=== PATIENT | male | born 1990 | race Hispanic/Latino ===

== ENCOUNTER 2023-02-26 05:01 | Emergency (ER) | payer OTHER ==
[~2023-02-26] VITALS: Ht 182.9 cm; Wt 95.7 kg
[2023-02-26 05:05] VITALS: BP 141/83; PULSE 72; RESP 16; O2SAT 99
[2023-02-26] MEDS ORDERED: KETOROLAC 30MG VIAL (30MG/ML) IVP ONE (05:30)
[2023-02-26] MEDS ORDERED: CEFTRIAXONE 1G VIAL IVPB ONE (05:30)
[2023-02-26] MEDS ORDERED: CIPROFLOXACIN HCL 0.2%/HYDROCORT 1% 10 ML OTIC SUSP OTIC SCH (05:30)
[2023-02-26] MEDS ORDERED: CIPROFLOXACIN HCL 0.2%/HYDROCORT 1% 10 ML OTIC SUSP ONE (05:33)
[2023-02-26] MEDS ORDERED: CIPOTIC AD (06:05)
[2023-02-26] MEDS ORDERED: IBUP-1493 PO (06:05)
[2023-02-26] MEDS ORDERED: AMOX1TAB16 PO (06:05)
== END 2023-02-26 06:15 | disposition home or self-care (01) ==
LOC: EDH 05:01
DX: H60.503 Unspecified acute noninfective otitis externa, bilateral (principal)
CPT/HCPCS: 99284; 96374; 96375; J0696; J1885